=== PATIENT | female | born 1975 | race Caucasian/White ===

== ENCOUNTER 2021-02-20 16:55 | Emergency (ER) | payer MEDICARE, OTHER ==
[2021-02-20] MEDS ORDERED: LITHOBID C.R.300 MG PO (18:03)
[2021-02-20] MEDS ORDERED: PRAZOSIN HCL1 MG PO (18:03)
[2021-02-20] MEDS ORDERED: ABILIFY15 MG PO (18:03)
[2021-02-20] MEDS ORDERED: IBU800 MG PO (18:52)
== END 2021-02-20 18:50 | disposition home or self-care (01) ==
LOC: ER1 16:55
DX: F20.9 Schizophrenia, unspecified (principal); F41.9 Anxiety disorder, unspecified; F17.210 Nicotine dependence, cigarettes, uncomplicated; Z79.899 Other long term (current) drug therapy
CPT/HCPCS: 80178; 99283

== ENCOUNTER 2021-05-19 12:00 | Emergency (ER) | payer MEDICARE, OTHER ==
[~2021-05-19 12:00] MED LIST: ABILIFY15 MG PO; IBU800 MG PO; LITHOBID C.R.300 MG PO; PRAZOSIN HCL1 MG PO
== END 2021-05-19 15:30 | disposition left against medical advice (07) ==
LOC: ER1 12:00
DX: Z53.21 Procedure and treatment not carried out due to patient leaving prior to being seen by health care provider (principal)

== ENCOUNTER 2021-08-11 15:00 | Emergency (ER) | payer MEDICARE, OTHER ==
[2021-08-11 16:05] LABS: HEMOGLOBIN 14.5 gm/dl (12.3-15.3); RED BLOOD COUNT 4.52 M/UL (4.00-5.10); WHITE BLOOD COUNT 10.9 K/UL (4.5-11.0)
[2021-08-11 16:24] LABS: BUN/CREATININE RATIO 17 (0-10)
== END 2021-08-11 20:55 | disposition left against medical advice (07) ==
LOC: ER1 15:00
PROVIDERS: Physician Assistant Medical
DX: F22 Delusional disorders (principal); R44.0 Auditory hallucinations; M54.2 Cervicalgia; F17.290 Nicotine dependence, other tobacco product, uncomplicated
CPT/HCPCS: 72040; 80053; 80307; 81001; 84439; 84443; 84703; 85025; 99285; G0480

== ENCOUNTER 2022-01-15 18:04 | Emergency (ER) | payer MEDICARE, OTHER ==
[2022-01-15] MEDS ORDERED: MOBIC7.5 MG PO (21:56)
== END 2022-01-15 22:07 | disposition home or self-care (01) ==
LOC: ER1 18:04
DX: S16.1XXA Strain of muscle, fascia and tendon at neck level, initial encounter (principal); M25.562 Pain in left knee; M25.572 Pain in left ankle and joints of left foot; F17.210 Nicotine dependence, cigarettes, uncomplicated; W19.XXXA Unspecified fall, initial encounter; Y92.009 Unspecified place in unspecified non-institutional (private) residence as the place of occurrence of the external cause
CPT/HCPCS: 70486; 72125; 73562; 73610; 99284